=== PATIENT | male | born 1960 | race Caucasian/White ===

== ENCOUNTER 2018-03-28 09:54 | Emergency (ER) | payer OTHER ==
[2018-03-28 10:51] LABS: ADD MAN DIFF? NO
[2018-03-28 10:52] LABS: BASOPHILS % 0.4 % (0.0-2.0); EOSINOPHILS # 0.4 10^3/ul (0.0-0.5); EOSINOPHILS % 5.4 % (0.0-7.0); HEMATOCRIT 42.6 % (42.0-52.0); HEMOGLOBIN 14.4 g/dl (14.0-18.0); LYMPHOCYTES # 1.4 10^3/ul (0.8-2.9); LYMPHOCYTES % 20.8 % (15.0-51.0); MEAN CORPUSCULAR HEMOGLOBIN 29.8 pg (29.0-33.0); MEAN CORPUSCULAR HGB CONC 33.8 g/dl (32.0-37.0); MEAN CORPUSCULAR VOLUME 88.2 fl (82.0-101.0); MEAN PLATELET VOLUME 8.9 fl (7.4-10.4); MONOCYTE # 0.6 10^3/ul (0.3-0.9); MONOCYTES % 9.4 % (0.0-11.0); NEUTROPHIL # 4.2 10^3/ul (1.6-7.5); NEUTROPHILS % 63.4 % (39.0-77.0); PLATELET COUNT 202 10^3/UL (140-415); RED BLOOD COUNT 4.83 10^6/ul (4.70-6.10)
[2018-03-28 10:52] LABS: WHITE BLOOD COUNT 6.7 10^3/ul (4.8-10.8)
[2018-03-28] MEDS: DIPHTH/TET/ACEL PERTUSS (ADULT) 0.5 ML VIAL IM* (10:55)
[2018-03-28] MEDS: ACETAMINOPHEN 500 MG TAB PO (10:55)
[2018-03-28 11:12] LABS: ANION GAP 10 (5-13); BLOOD UREA NITROGEN 13 mg/dl (7-20); CALCIUM 9.6 mg/dl (8.4-10.2); CARBON DIOXIDE 29 mmol/L (21-31); CHLORIDE 106 mmol/L (97-110); CREATININE 1.05 mg/dl (0.61-1.24); Estimated GFR > 60 mL/min (>60); GLUCOSE 117 mg/dl (70-220); POTASSIUM 4.2 mmol/L (3.5-5.1); SODIUM 145 mmol/L (135-144)
[2018-03-28 11:14] LABS: INR 0.92; PARTIAL THROMBOPLASTIN TIME 28.1 Sec (23.0-35.0); PROTIME 12.4 Sec (11.9-14.9)
[2018-03-28] MEDS: SOD CHLORIDE 0.9% 100 ML (11:52)
[2018-03-28] MEDS: IOHEXOL 300MG/ML 150 ML BTL (11:52)
== END 2018-03-28 12:58 | disposition home or self-care (01) ==
LOC: E/R 09:54
DX: S20.219A Contusion of unspecified front wall of thorax, initial encounter (principal); R40.2142 Coma scale, eyes open, spontaneous, at arrival to emergency department; J45.909 Unspecified asthma, uncomplicated; R07.89 Other chest pain; V89.2XXA Person injured in unspecified motor-vehicle accident, traffic, initial encounter; Z23 Encounter for immunization; Z87.891 Personal history of nicotine dependence
CPT/HCPCS: 70450; 71260; 72125; 74177; 80048; 85025; 85610; 85730; 90471; 90715; 93005; 99285-25